=== PATIENT | female | born 1965 | race Caucasian/White ===

== ENCOUNTER 2020-01-26 17:08 | Emergency (ER) | payer OTHER ==
--- NOTE | 2020-01-26 17:40 | UC ---
Abdominal Pain Female HPI - HPI Summary HPI Summary: Started w/ abd discomfort and pain, watery diarrhea, and violent gagging/heaves w yellow bile. this interrupted her sleep. today still has sore stomach and pain in abd that radiates to her lower back w / some melo. urinating normally and she feels shes able to maintain fluids. last symptoms were approx 8 hrs ago. Of note this has happened several weeks ago w/ same symptoms but it resolved on its own. has consistent zofran rx'd for her gastroparesis, last took yesterday. Dr. Mckeon is GI doc. - History of Current Complaint Chief Complaint: UCGI Stated Complaint: DIARRHEA/VOMITING/STOMACH/LOW BACK PAIN Time Seen by Provider: 01/26/20 17:31 Hx Obtained From: Patient Onset/Duration: Sudden Onset Aggravating Factor(s): Nothing Allergies/Adverse Reactions: Allergies Allergy/AdvReac Type Severity Reaction Status Date / Time hydroxychloroquine Allergy Headache Verified 01/26/20 17:31 [From Plaquenil] Home Medications: Home Medications Esomeprazole(NF) [Nexium(NF)] 1 cap DAILY 01/26/20 [History Confirmed 01/26/20] Levothyroxine Sodium [Tirosint] 75 mcg DAILY 01/26/20 [History Confirmed ] Methotrexate TAB* 4 tab WEEKLY 01/26/20 [History Confirmed 01/26/20] Ondansetron ODT TAB* [Zofran 4 MG Odt TAB*] 1 tab Q4HR PRN 01/26/20 [History Confirmed 01/26/20] Polyethylene Glycol 3350 [Miralax] 1 packet DAILY 01/26/20 [History Confirmed ] Prucalopride Succinate [Motegrity] 1 tab DAILY 01/26/20 [History Confirmed ] PMH/Surg Hx/FS Hx/Imm Hx - Additional Past Medical History Additional PMH: AUTOIMMUNE: sjogrens, connective tissues dis Previously Healthy: No - chronic illnesses Endocrine History: Thyroid Disease GI/ History: Other - gastroparesis - Surgical History Surgical History: Yes Surgery Procedure, Year, and Place: Appendectomy, ovarian cyst removed age 10 Review of Systems All Other Systems Reviewed And Are Negative: Yes Constitutional: Negative: Fever, Chills, Fatigue Gastrointestinal: Positive: Abdominal Pain, Diarrhea, Nausea, Other - +gagging Neurological/Mental Status: Positive: Headache. Negative: Weakness Physical Exam Triage Information Reviewed: Yes Appearance: Well-Appearing Vital Signs Reviewed: Yes Neck: Positive: Supple, Nontender, No Lymphadenopathy Respiratory Exam: Normal Cardiovascular Exam: Normal Abdomen Description: Positive: Soft, Other: - +tenderness at epigastric area. Negative: CVA Tenderness (R), CVA Tenderness (L), Distended, Guarding Neurological: Positive: Alert Skin: Negative: Rashes Abd Pain Female Course/Dx - Course Course Of Treatment: Pt w/ hx of gastroparesis assoc. diarrhea and abd discomfort w/ gagging for one day. Given her hx and exam findings I've recommended she go to ED for purcell eval and CT of ABD. She will see GI w/in the next week as well. vitals are good she is stable. unclear etiology but ulcer and gastroparesis are on differentials. - Differential Dx/Diagnosis Differential Diagnosis: Other Provider Diagnosis: Abdominal discomfort Discharge ED - Sign-Out/Discharge Documenting (check all that apply): Patient Departure All imaging exams completed and their final reports reviewed: No Studies - Discharge Plan Condition: Stable Disposition: HOME Patient Education Materials: Gastroparesis (ED) Referrals: Kayla Ritchie PA [Primary Care Provider] - Additional Instructions: I think the best thing at this point since you are stable is for you to see GI on Mon. If your symptoms are the same or worse in 24hrs please go to emergency room. Maintain hydration. - Billing Disposition and Condition Condition: STABLE Disposition: Home - Attestation Statements Provider Attestation: I was available for consult. This patient was seen by the OLIVIA. The patient was not presented to , seen by or examined by [place] -[place] Peña MD
[2020-01-26 17:41] VITALS: BP 119/78
== END 2020-01-26 18:15 | disposition home or self-care (01) ==
LOC: UCCORT 17:08
DX: R19.8 Other specified symptoms and signs involving the digestive system and abdomen (principal); R19.7 Diarrhea, unspecified; R11.0 Nausea; R51 Headache; M35.00 Sjogren syndrome, unspecified; E07.9 Disorder of thyroid, unspecified; Z88.8 Allergy status to other drugs, medicaments and biological substances; Z79.899 Other long term (current) drug therapy
CPT/HCPCS: 99211; G0463